=== PATIENT | female | born 1955 | race Caucasian/White ===

== ENCOUNTER 2024-05-13 08:57 | Day surgery (SDC) | payer BC ==
[2024-05-13] MEDS: Lactated Ringers 1,000 ML IV SCH (09:10)
[2024-05-13] MEDS ORDERED: Propofol 200 MG/20 ML SDV ONE (09:16)
[2024-05-13] MEDS ORDERED: fentaNYL 50 MCG/ML SDV ONE (09:16)
[2024-05-13] MEDS ORDERED: Lidocaine 2% 20 ML MDV ONE (09:16)
[2024-05-13] MEDS ORDERED: Ketamine 200 MG/20 ML MDV ONE (09:16)
== END 2024-05-13 10:15 | disposition home or self-care (01) ==
LOC: CC.SDS 08:57
PROVIDERS: ATTEND Family Medicine
DX: K21.00 Gastro-esophageal reflux disease with esophagitis, without bleeding (principal); K31.7 Polyp of stomach and duodenum; K31.89 Other diseases of stomach and duodenum; K44.9 Diaphragmatic hernia without obstruction or gangrene; N18.2 Chronic kidney disease, stage 2 (mild); E78.5 Hyperlipidemia, unspecified
CPT/HCPCS: 00731; 87081; J2704; J3010; J3490; J7120